=== PATIENT | male | born 1965 | race Caucasian/White ===

== ENCOUNTER 2018-03-20 12:29 | Outpatient (RCR) | payer OTHER | END 2018-03-20 14:09 | disposition home or self-care (01) | PROVIDERS: ATTEND Neuromusculoskeletal Medicine, Sports Medicine | DX: Z02.71 Encounter for disability determination (principal); M48.00 Spinal stenosis, site unspecified; M41.9 Scoliosis, unspecified ==

== ENCOUNTER → 2018-03-20 | Outpatient (CLI) | payer OTHER ==
[~2018-03-20] MED LIST: CHLO1CAP
--- NOTE | 2018-03-20 14:32 | Diagnostic Imaging Report ---
INDICATION: Left shoulder pain. COMPARISON: None. FINDINGS: Two views of the left shoulder were obtained. There is no fracture, dislocation, or other acute bony abnormality identified. The soft tissues appear unremarkable. No radiopaque foreign bodies identified. The visualized portions of the left lung are clear. IMPRESSION: No acute fractures or dislocations of the left shoulder. Dictated by: Dictated on workstation # [id number]
--- NOTE | 2018-03-20 14:33 | Diagnostic Imaging Report ---
INDICATION: Scoliosis. Pain. COMPARISON: None. FINDINGS: Frontal and lateral radiographic views of the lumbar spine were obtained. Static alignment is maintained. There is no significant los- or retro-listhesis. There is no evidence of jumped facets. Vertebral body heights are maintained. There is no evidence of acute fracture. There are mild multilevel degenerative changes consisting of intervertebral disc height loss and facet arthropathy. Surrounding soft tissue structures are unremarkable. Included small bowel loops are nondistended. IMPRESSION: 1. No radiographic evidence of acute fracture or dislocation in the lumbar spine. 2. Mild multilevel degenerative changes. Dictated by: Dictated on workstation # [id number]
== END ==
LOC: RAD 13:55
PROVIDERS: ATTEND Neuromusculoskeletal Medicine, Sports Medicine
DX: Z02.71 Encounter for disability determination (principal); M47.816 Spondylosis without myelopathy or radiculopathy, lumbar region; M41.86 Other forms of scoliosis, lumbar region; M25.512 Pain in left shoulder
CPT/HCPCS: 72100; 73030

== ENCOUNTER → 2020-03-20 | Outpatient (CLI) | payer BC, OTHER ==
--- NOTE | 2020-03-20 12:03 | Diagnostic Imaging Report ---
INDICATION: Left shoulder pain and numbness. Time of exam: 11:48 AM 3 views of the left shoulder were obtained. Glenohumeral and acromioclavicular alignment are normal. Acromiohumeral space is normal. No fracture or dislocation is detected. IMPRESSION: No acute bony abnormality is detected. Dictated by: Dictated on workstation # [id number]
== END ==
LOC: RAD 11:27
PROVIDERS: ATTEND Nurse Practitioner
DX: M25.512 Pain in left shoulder (principal); R00.0 Tachycardia, unspecified
CPT/HCPCS: 73030

== ENCOUNTER → 2022-03-30 | Outpatient (CLI) | payer MEDICARE ==
[~2022-03-30] MED LIST changes: +CATHETER FLUSH 10 ML SYR IV PRN; +HOLD METFORMIN - RECEIVED CONTRAST 20 ML VIAL IV SCH; +IOHEXOL 350 MG/ML 100 ML (OMNIPAQUE 350) VIAL IV ONE; +NS 100 ML (IVPB) BAG IV ONE
--- NOTE | 2022-03-30 12:07 | Diagnostic Imaging Report ---
PROCEDURE: CT abdomen and pelvis with contrast. TECHNIQUE: Multiple contiguous axial images were obtained through the abdomen and pelvis after administration of intravenous contrast. Auto Exposure Controls were utilized during the CT exam to meet ALARA standards for radiation dose reduction. All CT scans use one or more of the following dose optimizing techniques: Automated exposure control, MA and/or KvP adjustment based on patient size and exam type or iterative reconstruction. INDICATION: "Abdominal mass." COMPARISON: I have no priors. No other history. No relevant comparison. FINDINGS: There is a circumscribed nodule in the right adrenal gland measuring 2.3 x 2.1 cm. It is low in density but did not have convincing macroscopic fat and showed no calcifications. Contralateral left adrenal is normal. The left kidney is pelvic and unobstructed. The right kidney is orthotopic, unobstructed, and normal. The urinary bladder had an unremarkable appearance. Liver, gallbladder, bile ducts, spleen, and pancreas are unremarkable. There is no small or large bowel obstruction. No appendicitis, diverticulitis, or focal hollow visceral inflammatory changes. No ascites, abscess, hematoma or acute fluid collection. There is no lymphadenopathy. IMPRESSION: 1. Indeterminate circumscribed right adrenal nodule. No other mass identified. Given the history, there are presumed prior outside studies performed; if submitted, an addendum addressing stability or changes would be provided upon receipt. If long-term stability of this lesion can be documented, it would require no further workup. Otherwise, repeat exam utilizing pre and multiphase postcontrast-enhanced CT abdomen or MR with adrenal protocol in six months' time recommended. 2. Left pelvic kidney. No hydronephrosis. No lymphadenopathy. No acute appearing pathology. Dictated by: Dictated on workstation # [id number]
== END ==
LOC: RAD 10:48
PROVIDERS: ATTEND Internal Medicine
DX: R19.00 Intra-abdominal and pelvic swelling, mass and lump, unspecified site (principal)
CPT/HCPCS: 74177

== ENCOUNTER → 2022-04-13 | Outpatient (CLI) | payer MEDICARE ==
[~2022-04-13] VITALS: Ht 175.3 cm; Wt 79.4 kg
[~2022-04-13] MED LIST changes: -CATHETER FLUSH 10 ML SYR IV PRN; -HOLD METFORMIN - RECEIVED CONTRAST 20 ML VIAL IV SCH; -IOHEXOL 350 MG/ML 100 ML (OMNIPAQUE 350) VIAL IV ONE; -NS 100 ML (IVPB) BAG IV ONE
== END | disposition home or self-care (01) ==
LOC: PREOP 05:53
PROVIDERS: ATTEND Surgery
DX: Z01.818 Encounter for other preprocedural examination (principal)

== ENCOUNTER 2022-04-25 08:44 | Day surgery (SDC) | payer MEDICARE ==
[~2022-04-25] VITALS: Ht 175 cm; Wt 79.4 kg
[2022-04-25] MEDS ORDERED: LACTATED RINGERS 1,000 ML IV ONE (08:51)
[2022-04-25] MEDS ORDERED: LACTATED RINGERS 1,000 ML IV STA (08:55)
[2022-04-25 09:05] VITALS: BP 148/75
--- NOTE | 2022-04-25 09:35 | Progress Note-Pre Operative ---
Pre-Operative Progress Note H&P Reviewed The H&P was reviewed, patient examined and no changes noted. Time Seen by Provider: 09:33 Date H&P Reviewed: Apr 25, 2022 Time H&P Reviewed: :33 Pre-Operative Diagnosis: Screening colonoscopy ANNIE RODGERS DO Apr 25, 2022 09:35
[2022-04-25] MEDS ORDERED: MIDAZOLAM 2 MG/2 ML (VERSED) VIAL ONE (09:42)
[2022-04-25] MEDS ORDERED: PROPOFOL INJECTION 50 ML IV ONE (10:16)
--- NOTE | 2022-04-25 10:44 | Progress Note-Post Operative ---
Post-Operative Progess Note Surgeon (s)/Manuscripts Curator (s) Surgeon ANNIE RODGERS DO Manuscripts Curator: none Pre-Operative Diagnosis Screening colonoscopy Post-Operative Diagnosis Internal Hemorrhoids Procedure & Operative Findings Date of Procedure 04/25/22 Procedure Performed/Findings Colonoscopy PROCEDURE NOTE: After informed consent was obtained, the patient was brought to the endoscopy suite, placed in bed in left lateral decubitus position. He was administered IV sedation by the OVEN EQUIPMENT REPAIRER who then monitored his vitals the entire time, heart rate, blood pressure and pulse ox and the scope was inserted, pushed all the way to about 150 cm and pushed into the cecum, took a picture of appendiceal orifice and then slowly withdrew the scope insufflating to look circumferentially at the lujan starting in the cecum, up the ascending colon to the hepatic flexure, then down the transverse colon, splenic flexure, into the descending colon, down in the sigmoid and then into the rectal vault and retroflexed the scope. Took picture of some internal hemorrhoids. The patient tolerated the procedure. He was recovered in endoscopy suite. Recommended for repeat colonoscopy in 10 years. Anesthesia Type IV sedation by OVEN EQUIPMENT REPAIRER Estimated Blood Loss Estimated blood loss (mL): none Specimens/Packing Specimens Removed none ANNIE RODGERS DO Apr 25, 2022 10:44
[2022-04-25 10:45] VITALS: BP 100/61
--- NOTE | 2022-04-25 10:45 | Endoscopy Discharge Instruct ---
Endo Procedure/Findings Findings 1.: Internal Hemorrhoids Discharge Instructions - Activity: You might feel a little sleepy until tomorrow. This is due to the me dicine you received to relax you. Until tomorrow, you should: NOT drive a car, operate machinery or power tools. NOT drink any alcoholic beverages. NOT make any important decisions or sign importortant papers. Do not return to work until tomorrow, unless otherwise instructed. Resume previous activities tomorrow. Diet: Start by taking liquids. If you tolerate liquids, advance to solid food. 1.: Colonscopy in 10 years Notify Physician - If you experience excessive bleeding, unusual abdominal pain, fever, or chest pain, contact your doctor immediately. ANNIE RODGERS DO Apr 25, 2022 10:44
[2022-04-25 10:50] VITALS: BP 102/62
--- NOTE | 2022-04-25 10:50 | Anesthesia-General Post-Op ---
MAC Patient Condition Mental Status/LOC: Same as Preop Cardiovascular: Satisfactory Nausea/Vomiting: Absent Respiratory: Satisfactory Pain: Controlled Complications: Absent Post Op Complications Complications None Follow Up Care/Instructions Patient Instructions None needed. Anesthesiology Discharge Order Discharge Order Patient is doing well, no complaints, stable vital signs, no apparent adverse anesthesia problems. No complications reported per nursing. ELVIRA SANDOVAL FLUID DESIGNER Apr 25, 2022 10:50
[2022-04-25 10:55] VITALS: BP 133/73
[2022-04-25 11:25] VITALS: BP 111/81
== END 2022-04-25 11:25 | disposition home or self-care (01) ==
LOC: ENDO 08:44
PROVIDERS: ATTEND Surgery
DX: Z12.11 Encounter for screening for malignant neoplasm of colon (principal); K64.8 Other hemorrhoids; Z88.0 Allergy status to penicillin

== ENCOUNTER 2022-05-29 16:33 | Emergency (ER) | payer MEDICARE ==
[~2022-05-29] VITALS: Ht 175 cm; Wt 78.0 kg
--- NOTE | 2022-05-29 17:03 | ED Abdominal Pain ---
General Stated Complaint: ABD PAIN/RECTAL PAIN Source of Information: Patient Exam Limitations: No Limitations, Intoxication History of Present Illness Date Seen by Provider: May 29, 2022 Time Seen by Provider: 16:42 Initial Comments Patient to the ER by private conveyance with his mother and chief complaint has been complaining of frequently feeling pressure in his rectum needing to have a bowel movement since February. He has been to Dr. Rowley's office and had labs and a CT done which did not show anything relevant. He was referred to Dr. Hawkins who did a colonoscopy and thought perhaps he had an enlarged prostate and sent him on to Dr. Wakefield, urology. Dr. Wakefield felt that his prostate was normal but may be had some neuropathic reason for his symptoms and started him on amitriptyline 10 mg. This was not helping so they reached out to Dr. Rowley who increased him to 20 mg. After that he started having a itchy rash like hives on his face and trunk so they stopped the amitriptyline. The patient felt that the amitriptyline was starting to help however mother did not note there was any improvement in his symptoms. They have an appointment with Dr. Rivas in August for GI consult. Colonoscopy by Dr. Hawkins 04/25/2022 demonstrated some internal hemorrhoids of no significance. Allergies and Home Medications Allergies Coded Allergies: Penicillins (Unverified Allergy, Mild, 05/28/09) Patient Home Medication List Home Medication List Reviewed: Yes Chlordiazepoxide/Clidinium (Clidinium-Chlordiazepoxide Cap) 1 Each Capsule, (Reported) Entered as Reported by: VAUGHN BUNDY on 05/28/09 0915 [diltiazem] 2% GEL, 1 GM RC Q6H PRN for PAIN-BREAKTHROUGH Prescribed by: ESCOBAR OG on 05/29/22 1832 Review of Systems Review of Systems Constitutional: No chills, No diaphoresis EENTM: No Blurred Vision, No Double Vision Respiratory: Denies Cough, Denies Shortness of Air Cardiovascular: Denies Chest Pain, Denies Edema Gastrointestinal: Denies Abdominal Pain, Denies Nausea Genitourinary: Denies Burning, Denies Discharge Musculoskeletal: No back pain, No joint pain All Other Systems Reviewed Negative Unless Noted: Yes Past Dlmuatc-Ulddgo-Ootybv Hx Patient Social History Tobacco Use?: No Use of E-Cig and/or Vaping dev: No Immunizations Up To Date First/Initial COVID19 Vaccinat: 2020 Second COVID19 Vaccination Ming: 2020 Third COVID19 Vaccination Date: 2020 Past Medical History Surgeries: Yes (CARPAL TUNNEL SRIRAM, NECK PROCEDURE) Open Heart Surgery Respiratory: No Cardiac: No Neurological: Yes (LOST OXYGEN AT PER MOTHER) Developmental Disorder Reproductive Disorders: No Genitourinary: No Gastrointestinal: Yes Musculoskeletal: Yes Endocrine: No HEENT: No Cancer: No Psychosocial: No Integumentary: No Blood Disorders: No Physical Exam Vital Signs Capillary Refill : Height/Weight/BMI Height: '" Weight: lbs. oz. kg; 25.92 BMI Method: General Appearance: WD/WN, no apparent distress HEENT: PERRL/EOMI, normal ENT inspection, pharynx normal Neck: full range of motion, normal inspection Respiratory: no respiratory distress, no accessory muscle use Cardiovascular: normal peripheral pulses, regular rate, rhythm Gastrointestinal: normal bowel sounds, non tender, soft Rectal: No blood streaked stool, No decreased tone; hemorrhoids (Mild hemorrh oids all 4 quadrants without engorgement, erythema induration or impaction), tenderness, other (Prostate unremarkable to palpation. No stool in the rectal vault.) Extremities: normal inspection, normal capillary refill Neurologic/Psychiatric: alert, oriented x 3, other (Mildly agitated) Progress/Results/Core Measures Results/Orders Lab Results Laboratory Tests Test 05/29/22 17:40 Range/Units White Blood Count 10.3 4.3-11.0 10^3/uL Red Blood Count 4.62 4.30-5.52 10^6/uL Hemoglobin 14.1 13.3-17.7 g/dL Hematocrit 42 40-54 % Mean Corpuscular Volume 90 80-99 fL Mean Corpuscular Hemoglobin 31 25-34 pg Mean Corpuscular Hemoglobin Concent 34 32-36 g/dL Red Cell Distribution Width 13.7 10.0-14.5 % Platelet Count 182 130-400 10^3/uL Mean Platelet Volume 9.5 9.0-12.2 fL Immature Granulocyte % (Auto) 0 % Neutrophils (%) (Auto) 86 H 42-75 % Lymphocytes (%) (Auto) 7 L 12-44 % Monocytes (%) (Auto) 6 0-12 % Eosinophils (%) (Auto) 1 0-10 % Basophils (%) (Auto) 0 0-10 % Neutrophils # (Auto) 8.9 H 1.8-7.8 10^3/uL Lymphocytes # (Auto) 0.7 L 1.0-4.0 10^3/uL Monocytes # (Auto) 0.6 0.0-1.0 10^3/uL Eosinophils # (Auto) 0.1 0.0-0.3 10^3/uL Basophils # (Auto) 0.0 0.0-0.1 10^3/uL Immature Granulocyte # (Auto) 0.0 0.0-0.1 10^3/uL Neutrophils % (Manual) 75 % Lymphocytes % (Manual) 8 % Monocytes % (Manual) 6 % Eosinophils % (Manual) 3 % Basophils % (Manual) 0 % Band Neutrophils 8 % Blood Morphology Comment NORMAL Sodium Level 140 135-145 MMOL/L Potassium Level 4.0 3.6-5.0 MMOL/L Chloride Level 106 98-107 MMOL/L Carbon Dioxide Level 20 L 21-32 MMOL/L Anion Gap 14 5-14 MMOL/L Blood Urea Nitrogen 11 7-18 MG/DL Creatinine 0.95 0.60-1.30 MG/DL Estimat Glomerular Filtration Rate 93 BUN/Creatinine Ratio 12 Glucose Level 147 H 70-105 MG/DL Calcium Level 9.2 8.5-10.1 MG/DL Lipase < 4 L 8-78 U/L My Orders Orders - ESCOBAR OG Ketorolac Injection (Toradol Injection) (05/29/22 17:15) Medications Given in ED Current Medications Medications Dose Ordered Sig/Jose Route Start Time Stop Time Status Last Admin Dose Admin Ketorolac Tromethamine 60 mg ONCE ONCE IM 05/29/22 17:15 05/29/22 17:16 DC 05/29/22 17:06 60 MG Progress Progress Note #1: Time: 17:08 Progress Note After rectal exam the etiology remains elusive. It is possible the patient may have a little fissure or something causing his discomfort however nothing on external exam or digital rectal exam is readily apparent. We will check some basic labs and give him a shot of Toradol. He is little tachycardic. We did caution the patient and his mother that his case is likely more complicated than what we will be able to sort out in the ER. While the patient has some hemorrhoids none of them are inflamed. No fissure is seen on exam. No blood grossly on digital rectal exam. He has had endoscopy so a carcinoma, rectocele or inflamed prostate are less likely after urologic examination. Differential includes levator ani syndrome, proctalgia fugax, neuropathic syndrome or other. We will try a shot of Toradol and if that does not help we may get him a prescription for antispasmodic topical such as topical diltiazem gel 2%. We will also recommend sitz bath's. He is already on fiber which we will encourage him to continue. We might offer him a couple tablets of gabapentin to see if this helps with his symptoms as well. Progress Note #2: Time: 18:34 Progress Note The patient had a modest relief of symptoms with the Toradol. 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 Diagnostic Imaging Diagonstic Imaging: Xray Plain Films/CT/US/NM/MRI: abdomen, pelvis Comments NAME: [facility] REC#: [id number] PT STATUS: REG ER : 1965 PHYSICIAN: JOYCE MYRICK TAX COMMISSIONER ADMIT DATE: 05/29/22/ER Draft Date of Exam:05/29/22 ACUTE ABD SERIES EXAMINATION: Abdominal series and chest radiograph. HISTORY: Abdominal pain. COMPARISON: None available. FINDINGS: No dilated bowel. No free air. Lungs are clear without edema or pneumonia. No pleural effusion or pneumothorax. IMPRESSION: Normal bowel gas pattern and clear lungs. Dictated on workstation # [id number] Dict: 05/29/22 1813 Trans: 05/29/22 1823 [facility] [id number] Interpreted by: MARGARITA GATICA MD Electronically signed by: Reviewed: Reviewed by Me Departure Impression Primary Impression: Tenesmus (rectal) Additional Impression: Proctalgia fugax Disposition: 01 HOME, SELF-CARE Condition: Stable Departure-Patient Inst. Decision time for Depature: 18:28 Referrals: MARGARITA ROWLEY MD (PCP/Family) Primary Care Physician Patient Instructions: How to Do a Sitz Bath Add. Discharge Instructions: If you are having the sensation of pressure and needing to go to the bathroom but nothing can passed then I suggest a sitz bath followed by 1 g of diltiazem gel 2% applied to the sphincter and rectum topically using your finger. Wash your hands thoroughly afterwards. You may apply once every 6 hours as needed. Keep your follow-up appointment with the GI doctor. Scripts [diltiazem] 2% GEL No Conflict Check 1 GM RC Q6H PRN for PAIN-BREAKTHROUGH for 30 Days, #1 EA 0 Refills Prov: ESCOBAR OG 05/29/22 Copy Copies To 1: MARGARITA ROWLEY MD, TITUS J May 29, 2022 17:03
[2022-05-29] MEDS ORDERED: KETOROLAC 60 MG/2 ML VIAL IM ONE (17:15)
[2022-05-29 17:53] LABS: BASOPHILS % (AUTO) 0 % (0-10); EOSINOPHILS # (AUTO) 0.1 10^3/uL (0.0-0.3); EOSINOPHILS % (AUTO) 1 % (0-10); HEMATOCRIT 42 % (40-54); HEMOGLOBIN 14.1 g/dL (13.3-17.7); LYMPHOCYTES # (AUTO) 0.7 10^3/uL (1.0-4.0); LYMPHOCYTES % (AUTO) 7 % (12-44); MEAN CORPUSCULAR HEMOGLOBIN 31 pg (25-34); MEAN CORPUSCULAR HGB CONC 34 g/dL (32-36); MEAN CORPUSCULAR VOLUME 90 fL (80-99); MEAN PLATELET VOLUME 9.5 fL (9.0-12.2); MONOCYTES # (AUTO) 0.6 10^3/uL (0.0-1.0); MONOCYTES % (AUTO) 6 % (0-12); NEUTROPHILS # (AUTO) 8.9 10^3/uL (1.8-7.8); NEUTROPHILS % (AUTO) 86 % (42-75); PLATELET COUNT 182 10^3/uL (130-400); WHITE BLOOD COUNT 10.3 10^3/uL (4.3-11.0)
[2022-05-29 18:02] LABS: CHLORIDE 106 MMOL/L (98-107); SODIUM 140 MMOL/L (135-145)
[2022-05-29 18:03] LABS: CALCIUM 9.2 MG/DL (8.5-10.1)
[2022-05-29 18:04] LABS: GLUCOSE 147 MG/DL (70-105)
[2022-05-29 18:05] LABS: CARBON DIOXIDE 20 MMOL/L (21-32)
[2022-05-29 18:07] LABS: BAND NEUTROPHILS 8 %; BASOPHILS % (MANUAL) 0 %; EOSINOPHILS % (MANUAL) 3 %; LYMPHOCYTES % (MANUAL) 8 %; MONOCYTES % (MANUAL) 6 %; NEUTROPHILS % (MANUAL) 75 %; RBC MORPH NORMAL
[2022-05-29 18:08] LABS: BUN/CREATININE RATIO 12; CREATININE SERUM 0.95 MG/DL (0.60-1.30); GFR ESTIMATED 93
[2022-05-29 18:10] LABS: LIPASE < 4 U/L (8-78)
--- NOTE | 2022-05-29 18:24 | Diagnostic Imaging Report ---
EXAMINATION: Abdominal series and chest radiograph. HISTORY: Abdominal pain. COMPARISON: None available. FINDINGS: No dilated bowel. No free air. Lungs are clear without edema or pneumonia. No pleural effusion or pneumothorax. IMPRESSION: Normal bowel gas pattern and clear lungs. Dictated by: Dictated on workstation # [id number]
[2022-05-29] MEDS ORDERED: diltiazem RC (18:32)
[2022-05-29 18:42] VITALS: BP 150/89
== END 2022-05-29 18:42 | disposition home or self-care (01) ==
LOC: EDUNIT# 16:33 → ER 16:34
DX: R19.8 Other specified symptoms and signs involving the digestive system and abdomen (principal); K59.4 Anal spasm; R00.0 Tachycardia, unspecified
CPT/HCPCS: 36415; 74022; 80048; 83690; 85007; 85027

== ENCOUNTER 2022-06-26 07:00 | Emergency (ER) | payer MEDICARE ==
[~2022-06-26] VITALS: Ht 175 cm; Wt 78.0 kg
[~2022-06-26 07:00] MED LIST changes: +diltiazem RC
--- NOTE | 2022-06-26 07:20 | ED GI ---
General Chief Complaint: Rect Problems Stated Complaint: RECTAL PAIN,UNABLE TO SIT DOWN Nursing Triage Note: PT'S MOTHER STATES PT HAS HAD RECTAL PRESSURE SINCE FEBRUARY. PT WAS O2 DEPRIVED AT AND IS ON DISABILITY, MOTHER TAKES CARE OF HIM. Source of Information: Patient, Caregiver (mother) Exam Limitations: Physical Impairments History of Present Illness Date Seen by Provider: Jun 26, 2022 Time Seen by Provider: 07:15 Initial Comments Patient is a 56-year-old male with a history of intellectual disability since due to lack of oxygen during delivery. Complaint of intense rectal pain. He has had multiple visits to various doctors including his own primary care over the last several months. He has had colonoscopy and CAT scan according to his mother who provides the majority of the history. She states the CAT scan was unremarkable and the colonoscopy showed some small internal hemorrhoids, this was done by Dr. Hawkins here at [facility]. He has a pending referral to Dr. Rivas in [place] for August 11. She states he had a little bit of diarrhea yesterday. She states he was up all night with intense rectal pain. He has taken steroids and done suppositories without much relief. She states he did have an ER visit here at this hospital and was provided a cream which has not helped as well. No fevers, chills, cough or congestion. He is COVID vaccinated. Symptom onset about 2 weeks after his second COVID booster shot. No nausea, vomiting. He has had some urinary hesitancy. He describes lower abdominal discomfort. All other review of systems reviewed and negative except as stated. Timing/Duration: Other (months) Severity/Quality: Severe, Sharp Location: Other (rectal pain) Radiation: Other (lower abdomen) Modifying Factors: Worsens With Defecating, Worsens With Lying down; Improves With Other (sitting worsens) Associated Symptoms: Swelling/Mass in Abdomen (mother states abdomen more distended than usual) Allergies and Home Medications Allergies Coded Allergies: Penicillins (Unverified Allergy, Mild, 05/28/09) Patient Home Medication List Home Medication List Reviewed: Yes Chlordiazepoxide/Clidinium (Clidinium-Chlordiazepoxide Cap) 1 Each Capsule, (Reported) Entered as Reported by: VAUGHN BUNDY on 05/28/09 0915 [diltiazem] 2% GEL, 1 GM RC Q6H PRN for PAIN-BREAKTHROUGH Prescribed by: ESCOBAR OG on 05/29/22 183 Review of Systems Review of Systems Constitutional: see HPI EENTM: No Symptoms Reported Respiratory: No Symptoms Reported Cardiovascular: No Symptoms Reported Gastrointestinal: Other (rectal pain) Genitourinary: Other (difficulty urinating due to rectal pain) Musculoskeletal: no symptoms reported Skin: no symptoms reported All Other Systems Reviewed Negative Unless Noted: Yes Past Ggmjzgk-Qfbgmb-Hfsurr Hx Immunizations Up To Date First/Initial COVID19 Vaccinat: 2020 Second COVID19 Vaccination Ming: 2020 Third COVID19 Vaccination Date: 2020 Past Medical History Surgeries: Yes (CARPAL TUNNEL SRIRAM, NECK PROCEDURE) Open Heart Surgery Respiratory: No Cardiac: No Neurological: Yes (LOST OXYGEN AT PER MOTHER) Developmental Disorder Reproductive Disorders: No Genitourinary: No Gastrointestinal: Yes Musculoskeletal: Yes Endocrine: No HEENT: No Cancer: No Psychosocial: No Integumentary: No Blood Disorders: No Physical Exam Vital Signs Vital Signs - First Documented 06/26/22 07:09 Temp 36.1 Pulse 120 Resp 22 B/P (MAP) 171/108 (129) Pulse Ox 97 O2 Delivery Room Air Capillary Refill : Less Than 3 Seconds Height/Weight/BMI Height: '" Weight: lbs. oz. kg; 25.00 BMI Method: General Appearance: WD/WN, moderate distress (significantly anxious) HEENT: PERRL/EOMI Neck: normal inspection Respiratory: lungs clear, normal breath sounds, no respiratory distress, no accessory muscle use Cardiovascular: regular rate, rhythm, tachycardia Gastrointestinal: normal bowel sounds, non tender, soft Rectal: other (several nonthrombosed external hemorrhoids, tender to palpation externally; no obvious bleeding, fissures, masses, erythema/rashes; Anal sphincter is extremely tight, no internal masses palpated or fluctuance/masses - patient extremely apprehensive with exam; unable to feel the prostate due to patient apprehension, no palpable stool therefore bedside hemoccult not obtained) Extremities: normal range of motion, normal inspection Back: normal inspection Male: other (no masses, erythema at the perineum) Neurologic/Psychiatric: no motor/sensory deficits, alert, normal mood/affect, oriented x 3, other (anxious) Skin: normal color, warm/dry Progress/Results/Core Measures Results/Orders Lab Results Laboratory Tests Test 06/26/22 07:15 06/26/22 07:20 Range/Units Urine Color YELLOW Urine Clarity CLEAR Urine pH 6.0 5-9 Urine Specific [place] >=1.030 1.016-1.022 Urine Protein 1+ H NEGATIVE Urine Glucose (UA) NEGATIVE NEGATIVE Urine Ketones NEGATIVE NEGATIVE Urine Nitrite NEGATIVE NEGATIVE Urine Bilirubin NEGATIVE NEGATIVE Urine Urobilinogen 0.2 < = 1.0 MG/DL Urine Leukocyte Esterase NEGATIVE NEGATIVE Urine RBC (Auto) NEGATIVE NEGATIVE Urine RBC NONE /HPF Urine WBC NONE /HPF Urine Squamous Epithelial Cells RARE /HPF Urine Crystals NONE /LPF Urine Bacteria NEGATIVE /HPF Urine Casts NONE /LPF Urine Mucus NEGATIVE /LPF Urine Culture Indicated NO White Blood Count 5.4 4.3-11.0 10^3/uL Red Blood Count 4.23 L 4.30-5.52 10^6/uL Hemoglobin 12.9 L 13.3-17.7 g/dL Hematocrit 39 L 40-54 % Mean Corpuscular Volume 92 80-99 fL Mean Corpuscular Hemoglobin 31 25-34 pg Mean Corpuscular Hemoglobin Concent 33 32-36 g/dL Red Cell Distribution Width 14.1 10.0-14.5 % Platelet Count 215 130-400 10^3/uL Mean Platelet Volume 9.5 9.0-12.2 fL Immature Granulocyte % (Auto) 0 % Neutrophils (%) (Auto) 69 42-75 % Lymphocytes (%) (Auto) 22 12-44 % Monocytes (%) (Auto) 7 0-12 % Eosinophils (%) (Auto) 2 0-10 % Basophils (%) (Auto) 0 0-10 % Neutrophils # (Auto) 3.7 1.8-7.8 10^3/uL Lymphocytes # (Auto) 1.2 1.0-4.0 10^3/uL Monocytes # (Auto) 0.4 0.0-1.0 10^3/uL Eosinophils # (Auto) 0.1 0.0-0.3 10^3/uL Basophils # (Auto) 0.0 0.0-0.1 10^3/uL Immature Granulocyte # (Auto) 0.0 0.0-0.1 10^3/uL Sodium Level 143 135-145 MMOL/L Potassium Level 3.6 3.6-5.0 MMOL/L Chloride Level 107 98-107 MMOL/L Carbon Dioxide Level 22 21-32 MMOL/L Anion Gap 14 5-14 MMOL/L Blood Urea Nitrogen 16 7-18 MG/DL Creatinine 0.96 0.60-1.30 MG/DL Estimat Glomerular Filtration Rate 92 BUN/Creatinine Ratio 17 Glucose Level 200 H 70-105 MG/DL Calcium Level 9.5 8.5-10.1 MG/DL Corrected Calcium 8.5-10.1 MG/DL Total Bilirubin 0.3 0.1-1.0 MG/DL Aspartate Amino Transf (AST/SGOT) 15 5-34 U/L Alanine Aminotransferase (ALT/SGPT) 18 0-55 U/L Alkaline Phosphatase 55 40-136 U/L C-Reactive Protein High Sensitivity 9.52 H 0.00-0.50 MG/DL Total Protein 8.0 6.4-8.2 GM/DL Albumin 4.6 H 3.2-4.5 GM/DL My Orders Orders - JOSS GALLEGO MD Ed Iv/Invasive Line Start (06/26/22 07:20) Ua Culture If Indicated (06/26/22 07:20) Cbc With Automated Diff (06/26/22 07:20) Comprehensive Metabolic Panel (06/26/22 07:20) Fecal Occult Bedside (06/26/22 07:20) Fentanyl Inj (Sublimaze Injection) (06/26/22 07:30) Hs C Reactive Protein (06/26/22 07:29) Ns Iv 1000 Ml (Sodium Chloride 0.9%) (06/26/22 07:45) Nitroglycerin Ointment (Nitrobid Ointme (06/26/22 07:45) Medications Given in ED Current Medications Medications Dose Ordered Sig/Jose Route Start Time Stop Time Status Last Admin Dose Admin Fentanyl Citrate 50 mcg ONCE ONCE IVP 06/26/22 07:30 06/26/22 07:31 DC 06/26/22 07:29 50 MCG Nitroglycerin 1 inch ONCE ONCE TOP 06/26/22 07:45 06/26/22 07:46 DC 06/26/22 07:46 1 INCH Vital Signs/I&O 06/26/22 06/26/22 07:09 07:29 Temp 36.1 36.1 Pulse 120 Resp 22 B/P (MAP) 171/108 (129) Pulse Ox 97 O2 Delivery Room Air Blood Pressure Mean: 129 Progress Progress Note : Time: 08:54 Progress Note Patient states "50%" better after nitropaste. I had given him some fentanyl. Will change him to oxycodone. Recc to the mom that she call Dr Perera's office routinely to check on cancellation status and have close follow up with Dr Naranjo regarding "nerves". She is comfortable with plan of care. Also recc *daily* stool softeners and increased water intake. Departure Impression Primary Impression: Proctalgia fugax Disposition: 01 HOME, SELF-CARE Condition: Stable Departure-Patient Inst. Decision time for Depature: 08:57 Referrals: MARGARITA NARANJO MD (PCP/Family) Primary Care Physician Add. Discharge Instructions: Use TUCKS pads twice a day - even if no bowel movement. Continue to alternate tylenol and ibuprofen as needed. Nitro paste as prescribed to the rectum for more acute pain. Be sure to have a 10-12 hour period WITHOUT any paste daily. Oxycodone every 6 hours instead of hydrocodone for more intense pain. This medication can contribute to constipation so be sure he is on stool softeners TWICE a day and drinking water. Call Dr Naranjo's office to inquire about something for his anxiety and "nerves". Also call Dr Perera's office to remind them you would like to get an earlier appointment/ be first up for a cancellation appt. Return to the ER for fever, bloody stools or worsening pain. [facility] should carry "Hemorrhoid do-nuts". You should obtain records from this hospital of his CT Scan and his Colonoscopy to take to Dr Perera's appointment. Scripts Nitroglycerin (Nitro-Bid) 2 % Oint...g. 0.5 IN TD Q6H PRN for rectal pain, #1 EA 0.5-1 inch of paste to anus every 6hr. You need to have a 10-12 hour interval daily WITHOUT paste. Prov: JOSS GALLEGO MD 06/26/22 Oxycodone HCl (Oxycodone HCl) 5 Mg Tablet 5 MG PO Q6H PRN for PAIN-MODERATE (5-7), #12 TAB Prov: JOSS GALLEGO MD 06/26/22 Copy Copies To 1: MARGARITA NARANJO MD, KATHRYN M MD Jun 26, 2022 07:20
[2022-06-26 07:26] LABS: BILIRUBIN,URINE NEGATIVE (NEGATIVE); CLARITY,URINE CLEAR; COLOR,URINE YELLOW; GLUCOSE, URINE (UA) NEGATIVE (NEGATIVE); KETONES,URINE NEGATIVE (NEGATIVE); LEUKOCYTE ESTERASE ,URINE NEGATIVE (NEGATIVE); NITRITE,URINE NEGATIVE (NEGATIVE); PROTEIN,URINE 1+ (NEGATIVE)
[2022-06-26] MEDS ORDERED: fentaNYL INJ 100 MCG/2 ML AMP IVP ONE (07:30)
[2022-06-26 07:32] LABS: BASOPHILS % (AUTO) 0 % (0-10); EOSINOPHILS # (AUTO) 0.1 10^3/uL (0.0-0.3); EOSINOPHILS % (AUTO) 2 % (0-10); HEMATOCRIT 39 % (40-54); HEMOGLOBIN 12.9 g/dL (13.3-17.7); LYMPHOCYTES # (AUTO) 1.2 10^3/uL (1.0-4.0); LYMPHOCYTES % (AUTO) 22 % (12-44); MEAN CORPUSCULAR HEMOGLOBIN 31 pg (25-34); MEAN CORPUSCULAR HGB CONC 33 g/dL (32-36); MEAN CORPUSCULAR VOLUME 92 fL (80-99); MEAN PLATELET VOLUME 9.5 fL (9.0-12.2); MONOCYTES # (AUTO) 0.4 10^3/uL (0.0-1.0); MONOCYTES % (AUTO) 7 % (0-12); NEUTROPHILS # (AUTO) 3.7 10^3/uL (1.8-7.8); NEUTROPHILS % (AUTO) 69 % (42-75); PLATELET COUNT 215 10^3/uL (130-400); WHITE BLOOD COUNT 5.4 10^3/uL (4.3-11.0)
[2022-06-26 07:33] LABS: BACTERIA,URINE NEGATIVE /HPF; SQUAMOUS EPITHELIAL CELL,UR RARE /HPF
[2022-06-26 07:42] LABS: ALBUMIN 4.6 GM/DL (3.2-4.5)
[2022-06-26 07:43] LABS: CHLORIDE 107 MMOL/L (98-107); POTASSIUM 3.6 MMOL/L (3.6-5.0); SODIUM 143 MMOL/L (135-145)
[2022-06-26 07:44] LABS: CALCIUM 9.5 MG/DL (8.5-10.1)
[2022-06-26 07:45] LABS: GLUCOSE 200 MG/DL (70-105)
[2022-06-26] MEDS ORDERED: NS IV 1000 ML 1,000 ML IV SCH (07:45)
[2022-06-26] MEDS ORDERED: NITROGLYCERIN 2% OINT 1 GM UNIT DOSE PACKET TOP ONE (07:45)
[2022-06-26 07:46] LABS: CARBON DIOXIDE 22 MMOL/L (21-32)
[2022-06-26 07:47] LABS: BILIRUBIN,TOTAL 0.3 MG/DL (0.1-1.0)
[2022-06-26 07:48] LABS: ALKALINE PHOSPHATASE 55 U/L (40-136)
[2022-06-26 07:49] LABS: CREATININE SERUM 0.96 MG/DL (0.60-1.30); GFR ESTIMATED 92
[2022-06-26 07:50] LABS: BUN/CREATININE RATIO 17
[2022-06-26 07:52] LABS: ALANINE AMINOTRANSFERASE 18 U/L (0-55)
[2022-06-26] MEDS ORDERED: ALPRAZolam 1 MG (XANAX) TAB PO STA (08:54)
[2022-06-26] MEDS ORDERED: ALPRAZolam 0.5 MG (XANAX) TAB PO STA (09:01)
[2022-06-26] MEDS ORDERED: NITR1OIN TD (09:04)
[2022-06-26] MEDS ORDERED: OXYC5TAB PO (09:04)
[2022-06-26 09:12] VITALS: BP 142/87
== END 2022-06-26 09:12 | disposition home or self-care (01) ==
LOC: EDUNIT# 07:00 → ER 07:01
DX: K59.4 Anal spasm (principal)
CPT/HCPCS: 36415; 80053; 81000; 85025; 86141

== ENCOUNTER → 2022-11-01 | Outpatient (CLI) | payer MEDICARE ==
[~2022-11-01] MED LIST changes: +CATHETER FLUSH 10 ML SYR IV PRN; +IOHEXOL 350 MG/ML 100 ML (OMNIPAQUE 350) VIAL IV ONE; +NITR1OIN TD; +NS 100 ML (IVPB) BAG IV ONE; +OXYC5TAB PO
--- NOTE | 2022-11-01 14:41 | Diagnostic Imaging Report ---
PROCEDURE: CT abdomen with and without contrast. TECHNIQUE: Multiple contiguous axial CT images of the abdomen were obtained prior to and after intravenous administration of iodinated contrast. Auto Exposure Controls were utilized during the CT exam to meet ALARA standards for radiation dose reduction. INDICATION: Right adrenal gland mass COMPARISON: 03/30/2022 FINDINGS: Mild bibasilar scarring and/or atelectasis. The liver is mildly enlarged measuring 21 cm in craniocaudal dimension. The liver is otherwise unremarkable. The spleen is unremarkable. A 2.4 cm ovoid low-density right adrenal gland nodule is again identified. This demonstrates a Hounsfield units of below 0. This is unchanged in size since the prior examination. The absolute washout is calculated to be 67%. The left adrenal gland is unremarkable. The right kidney is unremarkable. The left kidney is minimally visualized within the pelvis. Minimal vascular calcifications without aneurysmal dilatation of the abdominal aorta. No bowel obstruction. No pneumatosis. No significant adenopathy, free air, or free fluid within the abdomen. Scattered osseous degenerative changes without acute osseous abnormality. IMPRESSION: Stable low-density right adrenal gland nodule is felt to relate to an adrenal adenoma. Mild hepatomegaly. Additional findings as above. This includes a left pelvic kidney which is minimally and incompletely visualized. Dictated by: Dictated on workstation # [id number]
== END ==
LOC: RAD 12:02
PROVIDERS: ATTEND Internal Medicine
DX: E27.8 Other specified disorders of adrenal gland (principal); R16.0 Hepatomegaly, not elsewhere classified
CPT/HCPCS: 74170

== ENCOUNTER 2022-11-07 09:26 | Emergency (ER) | payer MEDICARE ==
[~2022-11-07] VITALS: Ht 175 cm; Wt 73.0 kg
[~2022-11-07 09:26] MED LIST changes: -CATHETER FLUSH 10 ML SYR IV PRN; -IOHEXOL 350 MG/ML 100 ML (OMNIPAQUE 350) VIAL IV ONE; -NS 100 ML (IVPB) BAG IV ONE
[2022-11-07] MEDS ORDERED: PRAM56OI TP (09:38)
[2022-11-07] MEDS ORDERED: AMIT25TA9 PO (09:38)
[2022-11-07] MEDS ORDERED: PROCTO MED (09:38)
[2022-11-07] MEDS ORDERED: ESCI10TA PO (09:38)
[2022-11-07] MEDS ORDERED: ACHD5005 PO (09:38)
[2022-11-07 09:43] VITALS: BP_SYST 115; BP_SYST 122; BP_SYST 136; BP_DIAS 78; BP_DIAS 80; BP_DIAS 97
--- NOTE | 2022-11-07 11:11 | ED General ---
General Chief Complaint: General Problems/Pain Stated Complaint: WEAKNESS Nursing Triage Note: PT TO RM 6 BY EMS WITH CC OF WEAKNESS AND 2 FALLS THIS A.M. MOTHER DENIES ANY LOC BUT PT WAS SWEATING AND MAYER. EMS STATED PT STARTED SWEATING WHEN HE STOOD UP. HX OF CONSTIPATION AND BRAIN DAMAGE AT . Source of Information: Family (Mother) Exam Limitations: Other (Intellectual Disability) (JESSIE RODRIGUEZ) Source of Information: Patient, Family (Mother) Exam Limitations: No Limitations (CHUCK CALERO DO) History of Present Illness Date Seen by Provider: Nov 07, 2022 Time Seen by Provider: 09:50 Initial Comments This is a 57yo M with pmhx of intellectual disability, depression, anxiety, and proctosis fugax who presents for two falls today [id number] at 0830. Patient is accompanied by mother who is the primary historian. Patient reports he used the bathroom, got up, felt "dizzy and weak", then fell. Denied loss of consciousness, lightheadedness, vertigo, or disequilibrium. Mother observed that patient was sweating, cold, mayer, and clammy following the fall. She assisted patient up to standing and observed the second fall into the furnace room. Then transferred by ambulance to the ED. Patient had another fall episode 1 month ago in which he got "dizzy". Mother has noticed "low BP" recordings in the mornings with systolic in 90s and 100s. Patient has been coping with proctosis fugax and is receiving management by Dr. Varma. Mother expresses her disheartening experience seeing the patient deal with rectal pain despite receiving management to include stool softeners, hydrocodone, botox injections, Elavil, Lexipro, and other outpatient workup. Symptoms of anorectal pain since . Elavil, Lexapro, and Hydrocodone are new medications within the past 6 months for management of proctosis fugax. Mother is actively trying to wean patient off of Lexapro and Elavil. Patient is not currently feeling dizzy or having any symptoms right now. Patient has positive orthostatic vital signs in the ED from lying to sitting Severity: Moderate Associated Systoms: Weakness (JESSIE RODRIGUEZ) Initial Comments Attending documentation: Agree with above findings. Briefly his mother states that he has had 3 episodes where he seems to have acute onset of weakness and "went down." This was preceded by an episode of nausea and diaphoresis. No chest pain or shortness of breath. Endorsing dizzy feelings during that time. He has had similar symptoms about 2 months ago and ultimately cause was not identified. Does have longstanding history of constipation and the onset of each episode was associated with bowel movements he has been eating and drinking well (CHUCK CALERO DO) Allergies and Home Medications Allergies Coded Allergies: Penicillins (Unverified Allergy, Mild, 05/28/09) Patient Home Medication List Home Medication List Reviewed: Yes (JESSIE RODRIGUEZ) Amitriptyline HCl (Amitriptyline HCl) 25 Mg Tablet, 25 MG PO HS, (Reported) Entered as Reported by: KAITY HICKEY on 11/07/22937 Last Action: New Order Chlordiazepoxide/Clidinium (Clidinium-Chlordiazepoxide Cap) 1 Each Capsule, (Reported) Entered as Reported by: VAUGHN BUNDY on 05/28/09914 Last Action: Reviewed Escitalopram Oxalate (Lexapro) 10 Mg Tablet, 10 MG PO DAILY, (Reported) Entered as Reported by: KAITY HICKEY on 11/07/22937 Last Action: New Order Hydrocodone/Acetaminophen (Hydrocodone-Acetamin 5-325 mg) 5 Mg-325 Mg Tablet, 1 TAB PO Q4H PRN for PAIN-MODERATE (5-7), (Reported) Entered as Reported by: KAITY HICKEY on 11/07/22937 Last Action: New Order Nitroglycerin (Nitro-Bid) 2 % Oint...g., 0.5 IN TD Q6H PRN for rectal pain Prescribed by: JOSS GALLEGO on 06/26/22903 Last Action: Reviewed Pramoxine HCl/Zinc Oxide (Hemorrhoid 1%-12.5% Ointment) 1 %-12.5 % Oint...g., 56 GM TP, (Reported) Entered as Reported by: KAITY HICKEY on 11/07/22937 Last Action: New Order [procto med cream] , (Reported) Entered as Reported by: KAITY HICKEY on 11/07/22937 Last Action: New Order Discontinued Medications Oxycodone HCl (Oxycodone HCl) 5 Mg Tablet, 5 MG PO Q6H PRN for PAIN-MODERATE (5- 7) Discontinued Reason: No Longer Taking Prescribed by: JOSS GALLEGO on 06/26/22 0904 Last Action: Discontinued [diltiazem] 2% GEL, 1 GM RC Q6H PRN for PAIN-BREAKTHROUGH Discontinued Reason: No Longer Taking Prescribed by: ESCOBAR OG on 05/29/22 1832 Last Action: Discontinued Review of Systems Review of Systems Constitutional: No chills; diaphoresis, dizziness; No fever; weakness EENTM: no symptoms reported Respiratory: no symptoms reported Cardiovascular: no symptoms reported Gastrointestinal: no symptoms reported Genitourinary: no symptoms reported Musculoskeletal: no symptoms reported Skin: no symptoms reported Psychiatric/Neurological: Anxiety, Depressed; Denies Headache, Denies Numbness, Denies Paresthesia, Denies Tingling, Denies Tremors (JESSIE RODRIGUEZ) Past Unnzmzk-Ptpufv-Enyfsa Hx Patient Social History Tobacco Use?: No Substance use?: No Alcohol Use?: No (JESSIE RODRIGUEZ) Immunizations Up To Date First/Initial COVID19 Vaccinat: 2020 Second COVID19 Vaccination Ming: 2020 Third COVID19 Vaccination Date: 2020 (JESSIE RODRIGUEZ) Past Medical History Surgery/Hospitalization HX: NECK SURGERY, CARPEL TUNNEL BOTH HANDS, MENTAL DISABILITY FROM BRAIN INJURY AT , CHRONIC CONSTIPATION Surgeries: Yes (CARPAL TUNNEL SRIRAM, NECK PROCEDURE) Open Heart Surgery Respiratory: No Cardiac: No Neurological: Yes (LOST OXYGEN AT PER MOTHER) Developmental Disorder Reproductive Disorders: No Genitourinary: No Gastrointestinal: Yes Musculoskeletal: Yes Endocrine: No HEENT: No Cancer: No Psychosocial: No Integumentary: No Blood Disorders: No (JESSIE RODRIGUEZ) Physical Exam Vital Signs Vital Signs - First Documented 11/07/22 09:38 Temp 35.9 Pulse 90 Resp 20 B/P (MAP) 140/88 (105) Pulse Ox 96 O2 Delivery Room Air (CHUCK CALERO ) Vital Signs Capillary Refill : Less Than 3 Seconds (JESSIE RODRIGUEZ) Height, Weight, BMI Height: '" Weight: lbs. oz. kg; 23.00 BMI Method: General Appearance: No Apparent Distress, WD/WN HEENT: PERRL/EOMI, TMs Normal, Normal ENT Inspection, Pharynx Normal Neck: Full Range of Motion, Normal Inspection, Non Tender, Supple Respiratory: Chest Non Tender, Lungs Clear, Normal Breath Sounds, No Accessory Muscle Use, No Respiratory Distress Cardiovascular: Regular Rate, Rhythm, No Edema, No Murmur, Normal Peripheral Pulses, Other (Positive Orthostasis) Gastrointestinal: Normal Bowel Sounds, No Organomegaly, No Pulsatile Mass, Non Tender, Soft Back: Normal Inspection, No CVA Tenderness, No Vertebral Tenderness Extremity: Normal Capillary Refill, Normal Inspection, Normal Range of Motion, Non Tender, No Calf Tenderness, No Pedal Edema Neurologic/Psychiatric: Alert, Oriented x3, No Motor/Sensory Deficits, Normal Mood/Affect, director of learning II-XII Norm as Tested Skin: Normal Color, Warm/Dry Lymphatic: No Adenopathy (JESSIE RODRIGUEZ) Progress/Results/Core Measures Suspected Sepsis SIRS Temperature: Pulse: 112 Respiratory Rate: 20 Laboratory Tests 11/07/22 11:20: Blood Pressure 115 /78 Mean: 90 Laboratory Tests 11/07/22 11:20: (JESSIE RODRIGUEZ) Results/Orders Lab Results Laboratory Tests Test 11/07/22 11:20 Range/Units White Blood Count 13.7 H 4.3-11.0 10^3/uL Red Blood Count 4.48 4.30-5.52 10^6/uL Hemoglobin 14.2 13.3-17.7 g/dL Hematocrit 41 40-54 % Mean Corpuscular Volume 92 80-99 fL Mean Corpuscular Hemoglobin 32 25-34 pg Mean Corpuscular Hemoglobin Concent 34 32-36 g/dL Red Cell Distribution Width 14.5 10.0-14.5 % Platelet Count 238 130-400 10^3/uL Mean Platelet Volume 9.4 9.0-12.2 fL Immature Granulocyte % (Auto) 1 % Neutrophils (%) (Auto) 86 H 42-75 % Lymphocytes (%) (Auto) 7 L 12-44 % Monocytes (%) (Auto) 7 0-12 % Eosinophils (%) (Auto) 0 0-10 % Basophils (%) (Auto) 0 0-10 % Neutrophils # (Auto) 11.7 H 1.8-7.8 10^3/uL Lymphocytes # (Auto) 0.9 L 1.0-4.0 10^3/uL Monocytes # (Auto) 0.9 0.0-1.0 10^3/uL Eosinophils # (Auto) 0.0 0.0-0.3 10^3/uL Basophils # (Auto) 0.0 0.0-0.1 10^3/uL Immature Granulocyte # (Auto) 0.1 0.0-0.1 10^3/uL Neutrophils % (Manual) 81 % Lymphocytes % (Manual) 11 % Monocytes % (Manual) 7 % Band Neutrophils 1 % Blood Morphology Comment NORMAL Sodium Level 136 135-145 MMOL/L Potassium Level 4.1 3.6-5.0 MMOL/L Chloride Level 103 98-107 MMOL/L Carbon Dioxide Level 22 21-32 MMOL/L Anion Gap 11 5-14 MMOL/L Blood Urea Nitrogen 28 H 7-18 MG/DL Creatinine 0.85 0.60-1.30 MG/DL Estimat Glomerular Filtration Rate 100 BUN/Creatinine Ratio 33 Glucose Level 165 H 70-105 MG/DL Calcium Level 9.5 8.5-10.1 MG/DL Corrected Calcium 8.5-10.1 MG/DL Total Bilirubin 0.3 0.1-1.0 MG/DL Aspartate Amino Transf (AST/SGOT) 17 5-34 U/L Alanine Aminotransferase (ALT/SGPT) 11 0-55 U/L Alkaline Phosphatase 54 40-136 U/L Total Protein 7.8 6.4-8.2 GM/DL Albumin 4.7 H 3.2-4.5 GM/DL (ABDIAS,CHUCK L DO) My Orders Orders - ABDIAS,CHUCK L DO Cbc With Automated Diff (11/07/22 11:06) Comprehensive Metabolic Panel (11/07/22 11:06) Ekg Tracing (11/07/22 11:11) Manual Differential (11/07/22 11:20) Ns Iv 1000 Ml (Sodium Chloride 0.9%) (11/07/22 12:15) (ABDIAS,CHUCK L DO) Vital Signs/I&O 11/07/22 11/07/22 09:38 09:43 Temp 35.9 Pulse 90 103 96 112 Resp 20 B/P (MAP) 140/88 (105) 136/97 (110) 122/80 (94) 115/78 (90) Pulse Ox 96 O2 Delivery Room Air (ABDIAS,CHUCK L DO) Vital Signs/I&O Capillary Refill : Less Than 3 Seconds (JESSIE RODRIGUEZ) Blood Pressure Mean: 90 Departure Communication (Admissions) Patient is hemodynamically stable. Does have significant orthostasis, discussed IV fluid with his mother who does not really think this is necessary at this time because he is tolerating p.o. without difficulty. I think this is reasonable. His labs are unremarkable outside of mild leukocytosis. He has no evidence for infection at this time and his chronic proctalgia fugax and is really relatively poorly controlled at this time. They are quite frustrated with this diagnosis and I spent a significant amount of time talking to them about this diagnosis. They are following with GI and will return to his office. Discharged in stable condition with supportive care. (CHUCK CALERO DO) Impression Primary Impression: Orthostatic dizziness Disposition: HOME, SELF-CARE Condition: Stable Departure-Patient Inst. Referrals: MARGARITA NARANJO MD (PCP/Family) Primary Care Physician Patient Instructions: Orthostatic Hypotension (DC), Vasovagal Response (DC) Add. Discharge Instructions: I think that he likely had a vasovagal episode today and he is mildly dehydrated. Increase his fluids at home and allow him to rest. Regarding his rectal pain, I do think proctalgia fugax is the right diagnosis. Continue to work with GI specialist for further treatment recommendations. For now continue all his home therapies as previously prescribed. Return to the emergency department for any severe concerns. Follow-up with your primary doctor for any nonemergent needs. All discharge instructions reviewed with patient and/or family. Voiced understanding. JESSIE RODRIGUEZ Nov 07, 2022 11:11 CHUCK CALERO DO Nov 07, 2022 12:07
[2022-11-07 11:34] LABS: BASOPHILS % (AUTO) 0 % (0-10); EOSINOPHILS % (AUTO) 0 % (0-10); HEMATOCRIT 41 % (40-54); HEMOGLOBIN 14.2 g/dL (13.3-17.7); LYMPHOCYTES # (AUTO) 0.9 10^3/uL (1.0-4.0); LYMPHOCYTES % (AUTO) 7 % (12-44); MEAN CORPUSCULAR HEMOGLOBIN 32 pg (25-34); MEAN CORPUSCULAR HGB CONC 34 g/dL (32-36); MEAN CORPUSCULAR VOLUME 92 fL (80-99); MEAN PLATELET VOLUME 9.4 fL (9.0-12.2); MONOCYTES # (AUTO) 0.9 10^3/uL (0.0-1.0); MONOCYTES % (AUTO) 7 % (0-12); NEUTROPHILS # (AUTO) 11.7 10^3/uL (1.8-7.8); NEUTROPHILS % (AUTO) 86 % (42-75); PLATELET COUNT 238 10^3/uL (130-400); WHITE BLOOD COUNT 13.7 10^3/uL (4.3-11.0)
[2022-11-07 11:51] LABS: BAND NEUTROPHILS 1 %; LYMPHOCYTES % (MANUAL) 11 %; MONOCYTES % (MANUAL) 7 %; NEUTROPHILS % (MANUAL) 81 %; RBC MORPH NORMAL
[2022-11-07 12:03] LABS: ALANINE AMINOTRANSFERASE 11 U/L (0-55); ALBUMIN 4.7 GM/DL (3.2-4.5); ALKALINE PHOSPHATASE 54 U/L (40-136); BILIRUBIN,TOTAL 0.3 MG/DL (0.1-1.0); BUN/CREATININE RATIO 33; CALCIUM 9.5 MG/DL (8.5-10.1); CARBON DIOXIDE 22 MMOL/L (21-32); CHLORIDE 103 MMOL/L (98-107); CREATININE SERUM 0.85 MG/DL (0.60-1.30); GFR ESTIMATED 100; GLUCOSE 165 MG/DL (70-105); POTASSIUM 4.1 MMOL/L (3.6-5.0); SODIUM 136 MMOL/L (135-145); TOTAL PROTEIN 7.8 GM/DL (6.4-8.2)
[2022-11-07] MEDS ORDERED: NS IV 1000 ML 1,000 ML IV SCH (12:15)
[2022-11-07 12:22] VITALS: BP 137/92
== END 2022-11-07 12:27 | disposition home or self-care (01) ==
LOC: EDUNIT# 09:26 → ER 09:27
DX: R42 Dizziness and giddiness (principal); D72.829 Elevated white blood cell count, unspecified; W19.XXXA Unspecified fall, initial encounter
CPT/HCPCS: 36415; 80053; 85007; 85027; 93005

== ENCOUNTER 2023-08-25 00:24 | Observation (INO) | payer MEDICARE ==
[~2023-08-25] VITALS: Ht 175.3 cm; Wt 86.6 kg
[~2023-08-25 00:24] MED LIST changes: +ACHD5005 PO; +AMIT25TA9 PO; +ESCI10TA PO; +PRAM56OI TP; +PROCTO MED
[2023-08-25 00:59] LABS: BASOPHILS # (AUTO) 0.1 10^3/uL (0.0-0.1); BASOPHILS % (AUTO) 1 % (0-10); EOSINOPHILS # (AUTO) 0.1 10^3/uL (0.0-0.3); EOSINOPHILS % (AUTO) 1 % (0-10); HEMATOCRIT 40 % (40-54); LYMPHOCYTES # (AUTO) 1.8 10^3/uL (1.0-4.0); LYMPHOCYTES % (AUTO) 18 % (12-44); MEAN CORPUSCULAR HEMOGLOBIN 32 pg (25-34); MEAN CORPUSCULAR HGB CONC 33 g/dL (32-36); MEAN CORPUSCULAR VOLUME 96 fL (80-99); MEAN PLATELET VOLUME 9.6 fL (9.0-12.2); MONOCYTES # (AUTO) 1.1 10^3/uL (0.0-1.0); MONOCYTES % (AUTO) 11 % (0-12); NEUTROPHILS # (AUTO) 6.5 10^3/uL (1.8-7.8); NEUTROPHILS % (AUTO) 68 % (42-75); PLATELET COUNT 222 10^3/uL (130-400); WHITE BLOOD COUNT 9.6 10^3/uL (4.3-11.0)
[2023-08-25 01:05] LABS: ALBUMIN 4.4 GM/DL (3.2-4.5); POTASSIUM 3.8 MMOL/L (3.6-5.0)
[2023-08-25 01:06] LABS: CALCIUM 9.1 MG/DL (8.5-10.1)
[2023-08-25 01:07] LABS: TOTAL PROTEIN 7.8 GM/DL (6.4-8.2)
[2023-08-25 01:09] LABS: BILIRUBIN,TOTAL 0.7 MG/DL (0.1-1.0)
[2023-08-25 01:11] LABS: CREATININE SERUM 0.92 MG/DL (0.60-1.30)
[2023-08-25 01:12] LABS: PROTHROMBIN TIME PATIENT 13.4 SEC (12.2-14.7)
[2023-08-25] MEDS ORDERED: HOLD METFORMIN - RECEIVED CONTRAST 20 ML VIAL IV SCH (02:45)
[2023-08-25] MEDS ORDERED: CATHETER FLUSH 10 ML SYR IV PRN (02:45)
[2023-08-25] MEDS ORDERED: NS 100 ML (IVPB) BAG IV ONE (02:45)
[2023-08-25] MEDS ORDERED: IOHEXOL 350 MG/ML 100 ML (OMNIPAQUE 350) VIAL IV ONE (02:45)
--- NOTE | 2023-08-25 04:31 | ED General ---
General Chief Complaint: Abdominal/GI Problems Stated Complaint: LEFT SIDE PX Nursing Triage Note: PT TO ED WITH C/O LOWER LEFT SIDE ABD PAIN SINCE YESTERDAY MORNING Source of Information: Patient, Family Exam Limitations: No Limitations History of Present Illness Date Seen by Provider: Aug 25, 2023 Time Seen by Provider: 00:40 Initial Comments This 57-year-old gentleman presents to the emergency room with complaints of fairly intense pain in the left lower chest that is worse with inspiration. He reports the pain started after returning home from a bike ride yesterday. He has had some mild cough. He presents with his mother who is a caregiver for him. He has history of anoxic brain injury with intellectual disability. She reports he has had temperatures of approximately 100 degrees over the past week. He has had hot flashes and significant diaphoresis at night. She gave him ibuprofen at 2345. He took a hydrocodone at approximately 2000. She has noted him to have hypertension and tachycardia this week. He denies shortness of breath, nausea, vomiting, or diarrhea. He is splinting his respirations due to pain with inspiration. Patient was noted to be hypoxic on initial assessment with oxygen saturation of 89% on room air. He does not normally require oxygen. Allergies and Home Medications Allergies Coded Allergies: Penicillins (Unverified Allergy, Mild, 05/28/09) Patient Home Medication List Home Medication List Reviewed: Yes Amitriptyline HCl (Amitriptyline HCl) 25 Mg Tablet, 25 MG PO HS, (Reported) Entered as Reported by: KAITY HICKEY on 11/07/22 09 Chlordiazepoxide/Clidinium (Clidinium-Chlordiazepoxide Cap) 1 Each Capsule, (Reported) Entered as Reported by: VAUGHN BUNDY on 05/28/09 0915 Escitalopram Oxalate (Lexapro) 10 Mg Tablet, 10 MG PO DAILY, (Reported) Entered as Reported by: KAITY HICKEY on 11/07/22 09 Hydrocodone/Acetaminophen (Hydrocodone-Acetamin 5-325 mg) 5 Mg-325 Mg Tablet, 1 TAB PO Q4H PRN for PAIN-MODERATE (5-7), (Reported) Entered as Reported by: KAITY HICKEY on 11/07/22 09 Nitroglycerin (Nitro-Bid) 2 % Oint...g., 0.5 IN TD Q6H PRN for rectal pain Prescribed by: JOSS GALLEGO on 06/26/22 0904 Pramoxine HCl/Zinc Oxide (Hemorrhoid 1%-12.5% Ointment) 1 %-12.5 % Oint...g., 56 GM TP, (Reported) Entered as Reported by: KAITY HICKEY on 11/07/22937 [procto med cream] , (Reported) Entered as Reported by: KAITY HICKEY on 11/07/22937 Review of Systems Review of Systems Constitutional: see HPI EENTM: no symptoms reported Respiratory: see HPI Cardiovascular: see HPI Gastrointestinal: no symptoms reported Genitourinary: no symptoms reported Musculoskeletal: no symptoms reported Skin: no symptoms reported Psychiatric/Neurological: See HPI Hematologic/Lymphatic: No Symptoms Reported Immunological/Allergic: no symptoms reported Past Vyxzfcj-Xxspik-Yipigf Hx Patient Social History Tobacco Use?: No Substance use?: No Alcohol Use?: No Immunizations Up To Date First/Initial COVID19 Vaccinat: 2020 Second COVID19 Vaccination Ming: 2020 Third COVID19 Vaccination Date: 2020 Past Medical History Surgery/Hospitalization HX: NECK SURGERY, CARPEL TUNNEL BOTH HANDS, MENTAL DISABILITY FROM BRAIN INJURY AT , CHRONIC CONSTIPATION Surgeries: Yes (CARPAL TUNNEL SRIRAM, NECK PROCEDURE) Open Heart Surgery Respiratory: No Cardiac: Yes Hypertension Neurological: Yes (LOST OXYGEN AT PER MOTHER) Developmental Disorder Reproductive Disorders: No Genitourinary: No Gastrointestinal: Yes Musculoskeletal: Yes Endocrine: No HEENT: No Cancer: No Psychosocial: No Integumentary: No Blood Disorders: No Physical Exam Vital Signs Vital Signs - First Documented 08/25/23 00:33 Temp 36.5 Pulse 115 Resp 20 B/P (MAP) 170/92 (118) Pulse Ox 89 O2 Delivery Nasal Cannula O2 Flow Rate 2.00 Capillary Refill : Less Than 3 Seconds Height, Weight, BMI Height: '" Weight: lbs. oz. kg; 25.00 BMI Method: General Appearance: WD/WN, Mild Distress HEENT: Normal ENT Inspection Neck: Normal Inspection; No JVD Respiratory: Chest Non Tender, No Accessory Muscle Use, Crackles (Faint in the bases), Decreased Breath Sounds, Other (Splinting respirations) Cardiovascular: No Edema, No Murmur, Tachycardia Gastrointestinal: Normal Bowel Sounds, Distended, Tenderness (Left upper quadrant) Extremity: Normal Inspection, Non Tender, No Pedal Edema Neurologic/Psychiatric: Alert, Oriented x3, No Motor/Sensory Deficits, Normal Mood/Affect Skin: Normal Color, Warm/Dry Focused Exam Lactate Level 08/25/23 01:02: Lactic Acid Level 0.99 Lactic Acid Level Laboratory Tests Test 08/25/23 01:02 Lactic Acid Level 0.99 MMOL/L (0.50-2.00) Progress/Results/Core Measures Suspected Sepsis SIRS Temperature: Pulse: 115 Respiratory Rate: 20 Laboratory Tests 08/25/23 00:48: White Blood Count 9.6 Blood Pressure 170 /92 Mean: 118 08/25/23 01:02: Lactic Acid Level 0.99 Laboratory Tests 08/25/23 00:48: Creatinine 0.92, INR Comment 1.0, Platelet Count 222, Total Bilirubin 0.7 Results/Orders Lab Results Laboratory Tests Test 08/25/23 00:48 08/25/23 01:02 Range/Units White Blood Count 9.6 4.3-11.0 10^3/uL Red Blood Count 4.11 L 4.30-5.52 10^6/uL Hemoglobin 13.0 L 13.3-17.7 g/dL Hematocrit 40 40-54 % Mean Corpuscular Volume 96 80-99 fL Mean Corpuscular Hemoglobin 32 25-34 pg Mean Corpuscular Hemoglobin Concent 33 32-36 g/dL Red Cell Distribution Width 13.7 10.0-14.5 % Platelet Count 222 130-400 10^3/uL Mean Platelet Volume 9.6 9.0-12.2 fL Immature Granulocyte % (Auto) 1 % Neutrophils (%) (Auto) 68 42-75 % Lymphocytes (%) (Auto) 18 12-44 % Monocytes (%) (Auto) 11 0-12 % Eosinophils (%) (Auto) 1 0-10 % Basophils (%) (Auto) 1 0-10 % Neutrophils # (Auto) 6.5 1.8-7.8 10^3/uL Lymphocytes # (Auto) 1.8 1.0-4.0 10^3/uL Monocytes # (Auto) 1.1 H 0.0-1.0 10^3/uL Eosinophils # (Auto) 0.1 0.0-0.3 10^3/uL Basophils # (Auto) 0.1 0.0-0.1 10^3/uL Immature Granulocyte # (Auto) 0.1 0.0-0.1 10^3/uL Prothrombin Time 13.4 12.2-14.7 SEC INR Comment 1.0 0.8-1.4 Activated Partial Thromboplast Time 29 24-35 SEC Sodium Level 140 135-145 MMOL/L Potassium Level 3.8 3.6-5.0 MMOL/L Chloride Level 104 98-107 MMOL/L Carbon Dioxide Level 25 21-32 MMOL/L Anion Gap 11 5-14 MMOL/L Blood Urea Nitrogen 15 7-18 MG/DL Creatinine 0.92 0.60-1.30 MG/DL Estimat Glomerular Filtration Rate 96 BUN/Creatinine Ratio 16 Glucose Level 167 H 70-105 MG/DL Calcium Level 9.1 8.5-10.1 MG/DL Corrected Calcium 8.8 8.5-10.1 MG/DL Total Bilirubin 0.7 0.1-1.0 MG/DL Aspartate Amino Transf (AST/SGOT) 19 5-34 U/L Alanine Aminotransferase (ALT/SGPT) 38 0-55 U/L Alkaline Phosphatase 66 40-136 U/L C-Reactive Protein High Sensitivity 12.81 H 0.00-0.50 MG/DL B-Type Natriuretic Peptide 13.4 <100.0 PG/ML Total Protein 7.8 6.4-8.2 GM/DL Albumin 4.4 3.2-4.5 GM/DL Influenza Type A (RT-PCR) Not Detected Not Detecte Influenza Type B (RT-PCR) Not Detected Not Detecte SARS-CoV-2 RNA (RT-PCR) Not Detected Not Detecte Lactic Acid Level 0.99 0.50-2.00 MMOL/L My Orders Orders - JOHNSON MANNING MD Cbc And Automated Diff (08/25/23 00:51) Comprehensive Metabolic Panel (08/25/23 00:51) Blood Culture (08/25/23 00:51) Sputum Culture (08/25/23:51) Protime With Inr (08/25/23:51) Partial Thromboplastin Time (08/25/23 00:51) Chest 1 View, Ap/Pa Only (08/25/23 00:51) Ed Iv/Invasive Line Start (08/25/23 00:51) Vital Signs Adult Sepsis Patie Q15M (08/25/23 00:51) O2 (08/25/23 00:51) Remove Rings In Anticipation O (08/25/23 00:51) Lactic Acid Analyzer (08/25/23 00:51) Hs C Reactive Protein (08/25/23 00:51) Covid 19 Inhouse Test (08/25/23 00:51) Influenza A And B By Pcr (08/25/23 00:51) Bnp Flores (08/25/23 00:51) Ct Esme Chest/Noang Abd-Pelv W (08/25/23 01:59) Iohexol Injection (Omnipaque 350 Mg/Ml 1 (08/25/23 02:45) Received Contrast (Hold Metformin- Contr (08/25/23 02:45) Sodium Chloride Flush (Catheter Flush Sy (08/25/23 02:45) Ns (Ivpb) 100 Ml (Sodium Chloride 0.9% 1 (08/25/23 02:45) Ceftriaxone Iv/Im (Ceftriaxone Iv/Im) (08/25/23 05:10) Ketorolac Injection (Ketorolac Injection (08/25/23 05:15) Medications Given in ED Current Medications Medications Dose Ordered Sig/Jose Route Start Time Stop Time Status Last Admin Dose Admin Iohexol 100 ml ONCE ONCE IV 08/25/23 02:45 08/25/23 02:46 DC 08/25/23 02:42 85 ML Ketorolac Tromethamine 30 mg ONCE ONCE IVP 08/25/23 05:15 08/25/23 05:17 DC 08/25/23 05:22 30 MG Sodium Chloride 10 ml NEEDED PRN IV 08/25/23 02:45 08/25/23 02:42 10 ML Sodium Chloride 100 ml ONCE ONCE IV 08/25/23 02:45 08/25/23 02:46 DC 08/25/23 02:42 80 ML Vital Signs/I&O 08/25/23 08/25/23 00:33 00:33 Temp 36.5 Pulse 115 Resp 20 B/P (MAP) 170/92 (118) Pulse Ox 89 89 O2 Delivery Nasal Cannula O2 Flow Rate 2.00 Capillary Refill : Less Than 3 Seconds Blood Pressure Mean: 118 Progress Note : Progress Note Patient was interviewed and examined and mother was also interviewed. Labs were obtained, reviewed, and interpreted by me. Influenza and COVID swabs were negative. CBC was unremarkable except for mild anemia with hemoglobin of 13.0. BNP was normal at 13.4. CMP was relatively unremarkable except for hyperglycemia with glucose of 167. CRP was elevated at 12.8. Chest x-ray was viewed by me. Radiologist report was not yet available. By my interpretation there was atelectasis and/or infiltrate in the bilateral bases. There was no definite cause for his pain found on x-ray. There did appear to be dilated bowel loops seen on the x-ray. Abdomen did appear distended on exam. Initial work-up was followed by CT angiogram of the chest with not angiogram abdomen and pelvis CT. CT was viewed by me. There appeared to be infiltrates in the lung bases bilaterally that could explain his pain and hypoxia. CT revealed no evidence of pulmonary embolus or other acute abnormalities. Pneumonia is the likely cause of his symptoms. Antibiotic therapy was started with Rocephin after obtaining blood cultures and lactic acid. Lactic acid was normal. Because of his hypoxia, he was admitted for further evaluation and supportive care. I discussed the case with Dr. Trujillo, hospitalist on duty, who excepted admission. Toradol was given for his pain. Diagnostic Imaging Diagonstic Imaging: Xray Plain Films/CT/US/NM/MRI: chest Comments Chest x-ray was viewed by me. Radiologist's report was not yet available. There was atelectasis and/or infiltrate noted in the bilateral bases. Departure Communication (Admissions) Time/Spoke to Admitting Phy: 05:15 Dr. Trujillo Impression Primary Impression: Left lower lobe pneumonia Qualified Codes: J18.9 - Pneumonia, unspecified organism Additional Impressions: Hypoxia Pleuritic chest pain Disposition: ADMITTED INPATIENT Condition: Stable Admissions Decision to Admit Reason: Admit from ER (General) Decision to Admit/Date: Aug 25, 2023 Time/Decision to Admit Time: 05:15 Departure-Patient Inst. Referrals: MARGARITA NARANJO MD (PCP/Family) Primary Care Physician Copy Copies To 1: MARGARITA NARANJO MD, JOSHUA T MD Aug 25, 2023 04:31
--- NOTE | 2023-08-25 05:04 | Diagnostic Imaging Report ---
INDICATION: Chest pain, abdomen pain, hypoxia CTA chest, abdomen and pelvis Thin axial sections through the chest, abdomen and pelvis are obtained following intravenous contrast bolus. Multiplanar MIP images were reconstructed and reviewed. All CT scans use one or more of the following dose optimizing techniques: automated exposure control, MA and/or KvP adjustment based on patient size and exam type or iterative reconstruction. CTA CHEST: There are some atelectasis at both lung bases with some probable infiltrate at left lung base. There are no effusions or pneumothoraces. There is no hilar or mediastinal lymphadenopathy. There are no pulmonary emboli. There is no right ventricular strain. Thoracic aorta is unremarkable. There is coronary calcific arteriosclerosis. CT ABDOMEN: There is fatty infiltration of liver. Gallbladder is present and appears normal. Pancreas is unremarkable. Spleen is not enlarged. There is a 2 cm right adrenal adenoma. Right kidney appears normal. 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 There is no hydronephrosis, mass or calculus in either kidney. Urinary bladder is normal. Small bowel is not dilated. There is no evidence for appendicitis. Colon appears normal. There is no intraperitoneal free air or free fluid. IMPRESSION: Atelectasis at both lung bases with questionable infiltrate at the left base. There is hepatic steatosis. No acute abnormality seen in the abdomen or pelvis. Dictated by: Dictated on workstation # [id number]
[2023-08-25] MEDS ORDERED: cefTRIAXone IV/IM 1,000 MG in NS (IVPB) 50 ML 50 ML IV STA (05:10)
[2023-08-25] MEDS ORDERED: KETOROLAC INJ 30 MG/ML VIAL IVP ONE (05:15)
[2023-08-25 06:08] VITALS: BP 156/97
[2023-08-25] MEDS ORDERED: ONDANSETRON INJECTION 4 MG/2 ML (SDV) IV PRN (06:30)
[2023-08-25] MEDS ORDERED: AZITHROMYCIN 500 MG/NS 250 ML IVPB IV SCH ×2 (06:30)
[2023-08-25] MEDS ORDERED: KETOROLAC INJ 30 MG/ML VIAL IV PRN (06:30)
[2023-08-25] MEDS ORDERED: ACETAMINOPHEN 500 MG TABLET PO PRN (06:30)
--- NOTE | 2023-08-25 07:01 | Diagnostic Imaging Report ---
Indication: Shortness of air and hypoxia. Comparison: 05/29/2022. Findings: There is new bibasilar pulmonary opacities with likely small pleural effusions and lower lobe partial atelectasis. Upper lobes clear. Bibasilar pleural-parenchymal densities with pleural fluid and lower lobe partial atelectasis. Impression: 1. Pneumonia could not be excluded in the appropriate scenario. 2. Clear well-expanded upper lobes. Dictated by: Dictated on workstation # [id number]
[2023-08-25 08:22] VITALS: BP 144/80
[2023-08-25 12:00] VITALS: BP 147/85
--- NOTE | 2023-08-25 12:32 | Short Stay Summary-Hospitalist ---
SACHI BREWER 08/25/23 1232: History of Present Illness HPI/Chief Complaint Jerry Doll is a 57M with a PMH of anoxic brain injury w/ intellectual disa bility who presented with signs of pneumonia. He has been having night sweats, fever, tachycardia, and HTN for the past 3 days. His mother brought him in yesterday because he was also having worsening left-sided chest pain that sometimes was aggravated by inspiration and tender to the touch. He was admitted due to hypoxia, but his o2 sat is now 95 on room air. He denies any trauma to the area. He denies N/V, cough, SOB other than while on his bike yesterday. He has been on Rocephin and Azithromycin and will be sent home with a rx for Cefalexin and Azithromycin. Source: patient, mother Date Seen 08/25/23 Attending Physician Ahmet Rowley MD PCP Admitting Physician: Sachi Trujillo MD Attending Physician: Sachi Trujillo MD Referring Physician Date of Admission Aug 25, 2023 at 05:58 Home Medications & Allergies Home Medications Reviewed patient Home Medication Reconciliation performed by pharmacy medication reconciliations ekg technician and/or nursing. Patients Allergies have been reviewed. Allergies Allergies Coded Allergies Penicillins (Unverified Allergy, Mild, 05/28/09) Past Medical/Social/Family Hx Patient Social History Tobacco Use?: No Substance use?: No Alcohol Use?: No Pt stated abuse/neglect: No Immunizations Up To Date Influenza Vaccine Up-to-Date: Yes; Up-to-Date First/Initial COVID19 Vaccinat: 2020 Second COVID19 Vaccination Ming: 2020 Current Status Advance Directives: No Communicates: Verbally Primary Language: Egyptian Preferred Spoken Language: Egyptian Is interpretation needed?: No Implanted or Applied Medical D: None Past Medical History Anoxic brain injury w/ intellectual disability, spinal stenosis w/ surgery, rectal pain, incomplete emptying, B/L carpal tunnel Family Medical History Family Hx: Mom: heart dz Aunts: lung cancer, kidney cancer Dad: heart dz Siblings: DM Review of Systems Constitutional: No chills; fever (resolved today); No weight gain, No weight loss EENTM: No blurred vision, No double vision Respiratory: No cough; short of breath (yesterday on bike ride) Cardiovascular: No chest pain, No palpitations Gastrointestinal: No abdominal pain, No constipation, No diarrhea; other (incomplete emptying. rectal pain, seeing GI in [place]) Genitourinary: No dysuria, No frequency, No hematuria Musculoskeletal: No back pain, No joint pain; other (left lateral rib pain) Skin: No lesions, No lumps Psychiatric/Neurological: Anxiety, Depressed Physical Exam Physical Exam Vital Signs Vital Signs - First Documented 08/25/23 00:33 Temp 36.5 Pulse 115 Resp 20 B/P (MAP) 170/92 (118) Pulse Ox 89 O2 Delivery Nasal Cannula O2 Flow Rate 2.00 Capillary Refill : Less Than 3 Seconds Height, Weight, BMI Height: '" Weight: lbs. oz. kg; 28.18 BMI Method: General Appearance: No Apparent Distress, WD/WN HEENT: PERRL/EOMI; No Scleral Icterus (L), No Scleral Icterus (R) Neck: Normal Inspection, Non Tender; No JVD Respiratory: Chest Non Tender, No Accessory Muscle Use, No Respiratory Distress, Crackles (Faint in the bases) Cardiovascular: Regular Rate, Rhythm, No Edema, No JVD, No Murmur, Tachycardia Gastrointestinal: Non Tender; No Soft; Distended; No Guarding Extremity: Normal Inspection, Non Tender, No Pedal Edema Neurologic/Psychiatric: Alert, Oriented x3, No Motor/Sensory Deficits, Normal Mood/Affect Skin: Normal Color, Warm/Dry Results Results/Procedures Labs Laboratory Tests 08/25/23 00:48 Patient resulted labs reviewed. Short Stay Diagnosis Discharge Diagnosis-Short Stay Admission Diagnosis Non-septic pneumonia w/ hypoxia Final Discharge Diagnosis Non-septic pneumonia w/ hypoxia Conclusion Plan Azithromycin and Cefalexin for the pneumonia. Acetaminophen for the left lateral rib pain. Return if sx worsen or other concerns arise. SPIKE MARSHALL MD 08/25/23 1352: History of Present Illness Time Seen by a Provider: 12:15 Supervisory-Addendum Brief Verification & Attestation Participated in pt care: history, MDM, physical Personally performed: exam, history, MDM, supervision of care Care discussed with: Medical Student Procedures: n/a Results interpretation: Verified all documentation Verification and Attestation of Medical Student E/M Service A medical student performed and documented this service in my presence. I reviewed and verified all information documented by the medical student and made modifications to such information, when appropriate. I personally performed the physical exam and medical decision making. Spike Marshall, Aug 25, 2023,13:51 SACHI BREWER Aug 25, 2023 12:32 SPIKE MARSHALL MD Aug 25, 2023 13:52
[2023-08-25] MEDS ORDERED: AZIT250T PO (13:04)
[2023-08-25] MEDS ORDERED: CEPH500T PO (13:04)
--- NOTE | 2023-08-25 13:05 | Discharge Inst-Simple/Standard ---
Discharge Inst-Standard Discharge Medications New, Converted or Re-Newed RX: Transmitted to Pharmacy Patient Instructions/Follow Up Plan of Care/Instructions/FU: Please continue to take your medications as written. Please follow up with your primary care doctor to follow up this hospital stay. Activity as Tolerated: Yes Discharge Diet: No Restrictions Return to The Hospital For: Chest pain, shortness of breath, fever, weakness, if you feel you are getting worse. SPIKE ANGEL MD Aug 25, 2023 13:05
[2023-08-25 13:50] VITALS: BP 147/85
[2023-08-25] MEDS ORDERED: CATHETER FLUSH 10 ML SYR IVP SCH (14:00)
[2023-08-26] MEDS ORDERED: cefTRIAXone 1 GM/NS 50 ML IVPB IV SCH ×2 (05:30)
[2023-08-26] MEDS ORDERED: AZITHROMYCIN 250 MG TABLET PO SCH (09:00)
== END 2023-08-25 13:05 | disposition home or self-care (01) ==
LOC: EDUNIT# 00:24 → ER 00:27 → UNDOADMOB 05:58 → 4TH 05:58 → UNDODISOB 13:52
PROVIDERS: ADMIT Internal Medicine; ATTEND Internal Medicine
DX: J18.9 Pneumonia, unspecified organism (principal); R09.02 Hypoxemia
CPT/HCPCS: 71045; 71275; 74177; 80053; 83605; 83880; 85025; 85610; 85730; 86141; 87040; 87636; 96374; 96375 ×2; 99284; G0378; 36415

== ENCOUNTER → 2023-09-19 | Outpatient (CLI) | payer MEDICARE ==
[~2023-09-19] MED LIST changes: +AZIT250T PO; +CEPH500T PO
--- NOTE | 2023-09-19 09:39 | Diagnostic Imaging Report ---
EXAMINATION: Chest 2 view HISTORY: Pneumonia. COMPARISON: 08/25/2023 FINDINGS: The lungs are clear without edema or pneumonia. No pleural effusion or pneumothorax. Heart size is normal. IMPRESSION: 1. Clear lungs. Dictated by: Dictated on workstation # [id number]
== END ==
LOC: RAD 09:08
PROVIDERS: ATTEND Internal Medicine
DX: J18.1 Lobar pneumonia, unspecified organism (principal); I10 Essential (primary) hypertension; F32.0 Major depressive disorder, single episode, mild
CPT/HCPCS: 71046